=== PATIENT | female | born 1985 | race Caucasian/White ===

== ENCOUNTER 2020-04-03 23:20 | Inpatient (IN) ==
[2020-04-03] MEDS ORDERED: OXYTOCIN 30 UNITS/500 ML BAG IV PRN (23:45)
[2020-04-03] MEDS ORDERED: PENICILLIN G POTASSIUM 6 MU in DEXTROSE 5% 250 ML IV STA (23:45)
[2020-04-03] MEDS ORDERED: PENICILLIN G POTASSIUM 3 MU in DEXTROSE 5% 100 ML IV PRN (23:45)
--- NOTE | 2020-04-03 23:49 | History & Physical Report ---
Date of Service April 03, 2020 Assessment & Plan (1) Supervision of normal intrauterine in multigravida: 34yo at 39.2 weeks GA. Labor 1. Fetus: Cat 1 2. Labor: Active. 3. GBS positive: PCN 4. Vitals: WNL (2) Group B streptococcal carriage complicating : History of Present Illness Primary Care Provider: Namrata Beck MD 34yo at 39.2 weeks GA. Presents in active labor. Denies VB/LOF. Good FM. complicated by GBS positive. OB Labs: Blood Type A Positive 04/29/19 Hemoglobin 12.2 g/dL (12.0-16.0) 08/25/19 Hematocrit 35.7 % (37.0-47.0) L 08/25/19 Platelet Count 214 K/uL (130.0-400.0) 08/25/19 OB Optional Labs: Chlamydia trachomatis RNA NOT DETECTED (NOT DETECTED) 03/01/20 Neisseria gonorrhoeae RNA NOT DETECTED (NOT DETECTED) 03/01/20 Labs Reviewed: Initial OB Labs Blood Type & RH A positive Antibody Screen negative HCT/HGB 35.7/12.2 Platelets 214 Pap Test Chlamydia Not detected Gonorrhea Not detected Rubella Immune RPR Non-reactive Urine Culture/Screen GBS in urine HBsAg Non-reactive HIV Non-reactive MCV 92.5 Ultrasound Allergies Allergy/AdvReac Type Severity Reaction Status Date / Time No Known Drug Allergies Allergy Unknown Verified 04/03/20 20:03 Home Medications Home Medications Medication Instructions Recorded Confirmed Type prenat.vits,niurka,zqy-stdl-stxcj 1 tab PO QPM 04/11/19 04/03/20 History breast pump #1 ea 01/19/20 03/29/20 Rx polyethylene glycol 3350 1 cap PO PRN 02/17/20 03/29/20 History Patient History Medical History Anemia Fracture s/p Left elbow and wrist closed fx 20 years ago History of anemia iron Hx of bladder infections Hx of cardiac murmur echo 10 years ago in [facility] (unsure of location)- normal with no further f/u needed Hx of varicella LGSIL on Pap smear of cervix Surgical History History of bunionectomy bilateral History of colonoscopy History of colposcopy History of dilation and curettage 04/2019 S/P wisdom tooth extraction Status post colposcopy Family History Grandfather (Paternal) Colorectal cancer Twins live born in hospital Aunt Colorectal cancer paternal Grandmother (Paternal) Colorectal cancer Father Heart disease Grandfather (Maternal) Ovarian cancer primary peritoneal ca Uncle Hepatitis-C Social History Smoking Status: Never smoker Second Hand Exposure: No; Do You Dip or Chew Tobacco: No; Hx Alcohol Use: No Hx Substance Use: No Preferred Language: Arabic Communication Ability: Effective Chief Of Production Required: No Beliefs That Will Affect Care: None marital status: marital status details: Spouse: Avelino Mcnamara (34) [phone] Current Living Situation: Spouse Current Living Situation Comment: and son in a house current occupational status: employed current occupation: PA at [employer] Other Information That Helps Us Care for You: No Feels Safe at Home: Yes Safety Concerns: Feels Safe At This Time Childhood Exposure to Second-Hand Smoke: No Physical Exam Genitourinary: OB Exam Abdomen: + vertex Manual OB Exam: + cervical dilation 6 cm, + cervical effacement 90% and + station -2 OB Exam Monitor Tracing: + external FHT monitor used, + external uterine monitor used, + category I and + normal FHT variability; no early decelerations present, no late decelerations present and no variable decelerations Results & Data ([facility]) Vital Signs (Past 12 Hours) Vital Signs Pulse BP 04/03/20 23:38 85 116/61 Coding Level of Care Code None Diagnoses Supervision of normal intrauterine in multigravida Z34.80 Group B streptococcal carriage complicating O99.820
[2020-04-04] MEDS ORDERED: BUPIVACAINE 0.25% 30 ML VIAL ONE (00:03)
[2020-04-04] MEDS ORDERED: ePHEDrine sulfate 50 MG/ML AMP ONE (00:03)
[2020-04-04 00:04] LABS: Hematocrit (blood only) 36.2 % (37-47); Hemoglobin 12.4 g/dL (12.0-16.0); Mean Corpuscular Hemoglobin 31.7 pg (25-34); Mean Corpuscular Volume 92.6 fL (80-100); Mean Platelet Volume 9.7 fL (7.4-10.4); Platelet Count 165 K/uL (130-400); RDW Coefficient of Variation 13.4 % (11.5-14.5); RDW Standard Deviation 45.2 fL (36.4-46.3); Red Blood Count 3.91 M/uL (4.2-5.4); White Blood Count 10.67 K/uL (4.8-10.8)
[2020-04-04] MEDS ORDERED: fentaNYL citrate 100 MCG/2 ML VIAL ONE (00:04)
[2020-04-04] MEDS ORDERED: fentaNYL 2MCG/ML ROPIV 1.25MG/ML 100 ML BAG EPI ONE (00:04)
[2020-04-04] MEDS ORDERED: fentaNYL 2MCG/ML ROPIV 1.25MG/ML 100 ML BAG EPI PRN (00:10)
[2020-04-04] MEDS ORDERED: DiphenhydrAMINE HCL 50 MG/ML VIAL IV PRN (00:10)
[2020-04-04] MEDS ORDERED: NALOXONE HCL 0.4 MG/1 ML VIAL/CARP IV PRN (00:10)
[2020-04-04] MEDS ORDERED: ePHEDrine sulfate 50 MG/ML AMP IV PRN (00:10)
[2020-04-04] MEDS ORDERED: NALOXONE HCL 1 MG in SODIUM CHLORIDE 0.9% 1000ML 1,000 ML IV PRN (00:10)
[2020-04-04] MEDS ORDERED: ONDANSETRON INJ 2 MG/ML 2 ML VIAL IV PRN (00:10)
--- NOTE | 2020-04-04 00:13 | Anesthesiology Consultation ---
Date of Service April 04, 2020 Assessment & Plan (1) Encounter for pre-operative examination: Chart Review Chart Review: Patient NOT seen in Pre Admission Testing and Acceptable Risk for Labor Epidural Consults Requested none History Height/Weight Height: 5 ft 7 in Weight: 79.379 kg Allergies Allergy/AdvReac Type Severity Reaction Status Date / Time No Known Drug Allergies Allergy Unknown Verified 04/03/20 20:03 Medications Home Medications Medication Instructions Recorded Confirmed Last Taken prenat.vits,niurka,tsa-wljh-rrnce 1 tab PO QPM 04/11/19 04/03/20 04/03/20 breast pump #1 ea 01/19/20 03/29/20 Unknown polyethylene glycol 3350 1 cap PO PRN 02/17/20 03/29/20 04/01/20 Active Medications Generic Name Dose Route Start Last Admin Trade Name Freq PRN Reason Stop Dose Admin Lactated Ringer's 1,000 mls @ 125 mls/hr 04/03/20 23:45 04/04/20 00:00 Lr IV 04/05/20 23:44 999 mls/hr .Q8H PRN Administration L&D Protocol Protocol Penicillin G Potassium 6 mu/ 262 mls @ 262 mls/hr 04/03/20 23:45 04/04/20 00:08 Dextrose IV 04/04/20 00:44 262 mls/hr NOW STA Administration Past Medical History Medical History Anemia Fracture s/p Left elbow and wrist closed fx 20 years ago History of anemia iron Hx of bladder infections Hx of cardiac murmur echo 10 years ago in [facility] (unsure of location)- normal with no further f/u needed Hx of varicella LGSIL on Pap smear of cervix Exercise / Class Metabolic Activity II 4-5 Yardwork/Stairs/Walk up hill Past Family History Family History Grandfather (Paternal) Colorectal cancer Twins live born in hospital Aunt Colorectal cancer paternal Grandmother (Paternal) Colorectal cancer Father Heart disease Grandfather (Maternal) Ovarian cancer primary peritoneal ca Uncle Hepatitis-C Past Surgical History Surgical History History of bunionectomy bilateral History of colonoscopy History of colposcopy History of dilation and curettage 04/2019 S/P wisdom tooth extraction Status post colposcopy Past Anesthesia History No Hx of Anesthesia Complications and No Family Hx of Anesthesia Complications Social History Smoking Status: Never smoker Do You Dip or Chew Tobacco: No Hx Alcohol Use: No Hx Substance Use: No substance use type: does not use Physical Exam Vital Signs Last Vital Signs Temp 37.3 C 04/03/20 23:49 Pulse 85 04/03/20 23:38 Resp 20 04/03/20 23:49 BP 116/61 04/03/20 23:38 Testing Laboratory Results 04/03/20 23:57
[2020-04-04 00:15] LABS: Mean Corpuscular Hgb Conc 34.3 g/dL (32-36)
[2020-04-04] MEDS: LACTATED RINGER'S 1,000 ML IV PRN ×2 (01:10)
--- NOTE | 2020-04-04 04:25 | Labor Progress Brief Note ---
Date of Service April 04, 2020 Subjective Reason For Note: Routine Evaluation Assessment & Plan (1) Supervision of normal intrauterine in multigravida: Progressing well, Cat 1, AROM (2) Group B streptococcal carriage complicating : Admission and Anticipated Discharge Date Admission Date: April 03, 2020 Physical Exam Genitourinary: OB Exam Abdomen: + vertex Manual OB Exam: + cervical dilation (8.5), + cervical effacement 100%, + station 0 and + amniotic fluid bloody OB Exam Monitor Tracing: + external FHT monitor used, + external uterine monitor used, + category I and + normal FHT variability Results & Data ([facility]) Vital Signs (Past 12 Hours) Vital Signs Temp Pulse Resp BP Pulse Ox 04/04/20 04:19 92 H 99 04/04/20 04:14 100 H 98 04/04/20 04:13 88 102/57 L 04/04/20 04:09 78 98 04/04/20 04:04 79 96 04/04/20 03:59 80 112/58 L 97 04/04/20 03:54 81 96 04/04/20 03:49 85 98 04/04/20 03:44 81 97 04/04/20 03:43 100 H 97/55 L 04/04/20 03:39 37.0 C 90 97 04/04/20 03:34 93 H 97 04/04/20 03:30 18 04/04/20 03:29 87 97 04/04/20 03:28 92 H 102/62 04/04/20 03:24 85 97 04/04/20 03:19 89 96 04/04/20 03:14 86 97 04/04/20 03:13 82 116/66 04/04/20 03:09 90 97 04/04/20 03:04 88 97 04/04/20 03:00 18 04/04/20 02:59 92 H 113/63 97 04/04/20 02:54 85 96 04/04/20 02:49 100 H 97 04/04/20 02:44 103 H 97 04/04/20 02:43 86 113/61 04/04/20 02:39 92 H 97 04/04/20 02:34 87 96 04/04/20 02:30 16 04/04/20 02:29 85 96 04/04/20 02:28 91 H 106/58 L 07/22/20 02:24 105 H 96 04/04/20 02:19 93 H 96 04/04/20 02:14 92 H 95 04/04/20 02:13 99 H 106/55 L 04/04/20 02:09 94 H 96 04/04/20 02:04 97 H 96 04/04/20 02:00 90 18 107/59 L 04/04/20 01:59 92 H 96 04/04/20 01:54 92 H 96 04/04/20 01:49 93 H 96 04/04/20 01:44 93 H 114/57 L 97 04/04/20 01:39 90 97 04/04/20 01:34 90 97 04/04/20 01:30 18 04/04/20 01:29 92 H 97 04/04/20 01:28 85 107/58 L 04/04/20 01:24 90 97 04/04/20 01:19 91 H 98 04/04/20 01:15 37.2 C 18 04/04/20 01:12 87 110/55 L 98 04/04/20 01:08 86 115/55 L 04/04/20 01:07 88 98 04/04/20 01:06 95 H 106/54 L 04/04/20 01:04 85 113/56 L 04/04/20 01:02 91 H 116/57 L 97 04/04/20 01:00 89 18 106/51 L 04/04/20 00:58 86 120/82 04/04/20 00:57 87 98 04/04/20 00:56 95 H 120/74 04/04/20 00:54 47 L 120/69 04/04/20 00:52 90 129/62 99 04/04/20 00:50 86 130/63 04/04/20 00:48 130/61 04/04/20 00:47 80 98 04/04/20 00:46 81 137/63 04/04/20 00:44 80 129/60 04/04/20 00:42 87 134/73 99 04/04/20 00:40 82 126/71 04/04/20 00:39 95 H 94 04/04/20 00:38 83 123/71 04/04/20 00:37 80 98 07/22/20 00:36 82 117/65 07/22/20 00:35 82 129/70 04/04/20 00:34 93 H 94 04/04/20 00:32 88 98 04/04/20 00:31 92 H 127/59 L 04/04/20 00:29 86 126/59 L 04/04/20 00:27 98 H 90 04/04/20 00:20 94 H 99 04/03/20 23:49 37.3 C 20 04/03/20 23:38 37.3 C 85 20 116/61 Coding Level of Care Code None Diagnoses Supervision of normal intrauterine in multigravida Z34.80 Group B streptococcal carriage complicating O99.820
[2020-04-04] MEDS ORDERED: HYDROCORTISONE ACETATE 25 MG SUPP PR PRN (07:27)
[2020-04-04] MEDS ORDERED: DIPHTHERIA/TETANUS/PERTUSSIS 0.5 ML SYR/VIAL IM ONE (07:27)
[2020-04-04] MEDS ORDERED: BENZOCAINE 20% AER SPR 82.5 GM CAN EXT PRN (07:27)
[2020-04-04] MEDS ORDERED: ACETAMINOPHEN 325 MG TAB PO PRN (07:27)
[2020-04-04] MEDS ORDERED: bisacodyL 10 MG SUPP PR PRN (07:27)
[2020-04-04] MEDS ORDERED: SUPERCREAM 0.870% 15 GM JAR EXT PRN (07:27)
[2020-04-04] MEDS ORDERED: OXYTOCIN 30 UNITS/500 ML BAG IV PRN (07:27)
--- NOTE | 2020-04-04 07:46 | Anesthesia Procedure Note ---
Date of Service April 04, 2020 Anesthesia Post Epidural Note Vital Signs Vital Signs: Temp Pulse Resp BP Pulse Ox 37.1 C 78 18 122/56 L 90 04/04/20 05:30 04/04/20 07:43 04/04/20 06:30 04/04/20 07:43 04/04/20 07:31 Notes Mental Status: alert / awake / arousable and participated in evaluation Nausea / Vomiting: adequately controlled Pain: adequately controlled Airway Patency, RR, SpO2: stable & adequate BP & HR: stable & adequate Hydration State: stable & adequate Neuraxial Anesthesia: was administered and sensory block is resolving Anesthetic Complications: no major complications apparent and Pt Satisfied with anesthetic care Epidural: Removed without complications and With tip intact Notes: Epidural site clean, dry and intact. No signs of edema, erythema or bruising at insertion site. Pt instructed to request anesthesia if she has residual lower extremity numbness or if she develops lower extremity pain or weakness, back pain or headache.
--- NOTE | 2020-04-04 08:05 | Delivery Summary ---
DATE OF OPERATION: 04/04/2020 PROCEDURE: Normal spontaneous vaginal delivery with second-degree perineal and periurethral laceration repairs. SURGEON: Ed Esqueda MD PREOPERATIVE DIAGNOSES: 1. Single intrauterine at 39 weeks 2 days gestational age. 2. Active labor. 3. GBS positive. POSTOPERATIVE DIAGNOSES 1. Single intrauterine at 39 weeks 2 days gestational age. 2. Active labor. 3. GBS positive. 4. Status post delivery. ESTIMATED BLOOD LOSS: 300 mL. DRAINS: Straight cath at the completion of the case. URINE OUTPUT: 200 mL via straight catheterization. COMPLICATIONS: None. FINDINGS: Viable female infant with weight pending, Apgars of 8 and 9 at 1 and 5 minutes respectively. INDICATIONS: Mariel is a 34-year-old G3, P1, who presented in active labor. The patient progressed in labor without augmentation. She underwent artificial rupture of membranes for clear fluid and progressed in labor to complete-complete +2 station. The patient did receive an epidural for anesthesia and was on penicillin for GBS positive and was completed on penicillin at time of delivery and rupture. DESCRIPTION OF PROCEDURE: The patient progressed to 10 cm dilated, 100% effaced, +2 station, pushed over intact perineum over 4 contractions to achieve delivery. Head of the delivered in ABDIEL position, rest into right transverse. No nuchal cord was noted. Body and shoulders quickly followed. was noted to be vigorous upon delivery and was delivered to the maternal abdomen. A 1-minute delayed cord clamping was initiated, after which the cord was double clamped and cut. remained on maternal abdomen. Cord blood was then obtained. Attention was then turned to delivery of the placenta, which was delivered intact with 3-vessel cord, gentle cord traction. On inspection of the perineum, vagina, and cervix, there was noted to be periurethral laceration which was repaired with 3-0 Vicryl in interrupted stitch and a second-degree perineal laceration which was repaired with 3-0 Vicryl in traditional crown stitch. Needle, sponge, and instrument counts were correct at the completion of the case with mother and stable in the immediate post-delivery period. I attest to the content of the Intraoperative Record and any orders documented therein. Any exception s are noted below.
[2020-04-04] MEDS: DOCUSATE SODIUM 100 MG CAP PO SCH ×2 (14:43→21:27)
[2020-04-04] MEDS: PRENATAL VITAMIN 1 TAB PO SCH (14:43)
[2020-04-04] MEDS: IBUPROFEN 600 MG TAB PO PRN (17:54)
[2020-04-05] MEDS: IBUPROFEN 600 MG TAB PO PRN ×2 (06:16→10:47)
--- NOTE | 2020-04-05 06:25 | Obstetrical Progress Note ---
Date of Service <Simone Chandler MD - Last Filed: 04/05/20 06:54> April 05, 2020 Assessment & Plan <Simone Chandler MD - Last Filed: 04/05/20 06:54> (1) : - Feels well today. Eating well, voiding well, ambulating well. - Pain well controlled with analgesics. - Routine care - After discharge will have 6 week followup. Subjective <Simone Chandler MD - Last Filed: 04/05/20 06:54> Mariel is a 34 y/o female ; PPD #1 following spontaneous vaginal delivery at 39+ weeks; doing well this morning; light abdominal cramping & 3/10 pain well managed on analgesics; voiding well; tolerating meals overnight and able to ambulate some; some persistent lochia with some improvement this morning. Review of Systems Constitutional: denies fever, chills, sweat, headache Respiratory: denies shortness of breath, difficulty breathing Cardiac: denies chest pain, palpitations, chest pressure Breast: denies breast pain : denies dysuria Physical Exam <Simone Chandler MD - Last Filed: 04/05/20 06:54> General: Alert, oriented. No acute distress. Cardiac: Regular rate and rhythm, no murmurs/rubs/gallops. Respiratory: Clear to auscultation bilaterally a/p, no wheezes/rales/rhonchi. No increased work of breathing. Symmetrical chest rise. No respiratory distress. Abdomen: Soft, nontender, nondistended. Bowel sounds present. Uterus: Uterine fundus firm, palpable 1cm below umbilicus. Lower Extremities: No lower extremity edema or swelling. No deep calf pain. Amira's negative bilaterally. Results & Data <Simone Chandler MD - Last Filed: 04/05/20 06:54> Vital Signs (Past 12 Hours) Vital Signs Temp Pulse Resp BP Pulse Ox 04/05/20 03:18 36.7 C 70 18 111/72 04/04/20 23:25 36.4 C L 68 20 111/64 04/04/20 20:00 36.7 C 82 18 108/69 97 <Lazara Jose DO - Last Filed: 04/05/20 09:20> Co-Signing Physician Notes Resident Physician Supervision Note: I was present with Dr. Anderson during the history and exam. I discussed the case with the resident and agree with the findings and plan as documented in the note. Any exceptions or clarifications are listed here: PPD#1 doing well, desires discharge. Instructions reviewed Documented By: Lazara Jose DO Resident Activity Tracking <Simone Chandler MD - Last Filed: 04/05/20 06:54> Resident Involvement: Resident Care Provided Care Provided: OB Delivery
[2020-04-05 06:42] LABS: Hematocrit (blood only) 31.5 % (37-47); Hemoglobin 10.8 g/dL (12.0-16.0)
[2020-04-05] MEDS: DOCUSATE SODIUM 100 MG CAP PO SCH (08:07)
[2020-04-05] MEDS: PRENATAL VITAMIN 1 TAB PO SCH ×2 (08:07→08:10)
[2020-04-05] MEDS ORDERED: bisacodyL 5 MG TABEC PO SCH (20:00)
== END 2020-04-05 12:55 | disposition home or self-care (01) | DRG 807 ==
LOC: OPB 23:20 → 4S1 23:21 → 4S2 04-04 10:00